=== PATIENT | female | born 2000 | race Caucasian/White ===

== ENCOUNTER → 2019-09-15 12:40 | Outpatient (BNVA) | payer SELFPAY | PROVIDERS: Family Provider General Practice; Visit Provider Nurse Practitioner Women's Health | DX: Z01.89 Encounter for other specified special examinations (principal) ==

== ENCOUNTER 2019-12-10 00:48 | Emergency (ER) | payer SELFPAY ==
[2019-12-10 01:06] VITALS: BP 117/88; PULSE 119; RESP 18; TEMP 36.8; O2SAT 96; BMI 27.1
[2019-12-10 01:47] LABS: Basophils % 0.2 %; Eosinophils % 0.3 %; Hemoglobin 13.2 g/dL (11.5-15.3); Lymphocytes # 2.2 10^3/uL (0.8-4.8); Lymphocytes % 25.5 %; Mean Corpuscular HGB Conc 33.8 g/dL (30.0-36.0); Mean Corpuscular Hemoglobin 31.1 pg (28.0-34.0); Mean Platelet Volume 10.7 fL (7.4-10.4); Monocytes # 0.6 10^3/uL (0.2-0.9); Monocytes % 7.2 %; Neutrophils # 5.9 10^3/uL (1.8-7.7); Neutrophils % 66.5 %; Nucleated Red Blood Cells % 0 %; Platelet Count 192 10^3/cmm (130-400); Red Blood Count 4.24 10^6/uL (4.1-5.3); Red Cell Distribution Width 12.7 % (12.1-15.1); White Blood Count 8.8 10^3/uL (4.0-10.0)
[2019-12-10 02:02] LABS: Alanine Aminotransferase 11 U/L (0-33); Albumin Level 4.3 g/dL (3.5-5.2); Alkaline Phosphatase 59 IU/L (35-105); Anion Gap 14.9 (5-19); Aspartate Amino Transferase 13 U/L (0-32); Blood Urea Nitrogen 6 mg/dL (6-20); Calcium 9.4 mg/dL (8.5-10.5); Carbon Dioxide 25 mmol/L (22-29); Chloride 103 mmol/L (98-107); Globulin 2.9 g/dL (1.3-4.6); Glomerular Filtration Rate 126.2 mL/min (90-130); Glucose 103 mg/dL (65-115); Lipase 17 U/L (13-60); Osmolality Calculated 284 mOsm/kg (285-295); Potassium 3.9 mmol/L (3.5-5.1); Sodium 139 mmol/L (136-145); Total Bilirubin 0.3 mg/dL (0.15-1.2); Total Protein 7.2 g/dL (6.6-8.7)
[2019-12-10 02:14] LABS: HCG Qualitative Urine. Negative (Negative)
[2019-12-10 02:22] LABS: Bilirubin Urine Neg (NEGATIVE); Blood Urine 3+ (Negative); Glucose Urine UA Norm (Normal); Ketones Urine Negative (Negative); Leukocyte Esterase Urine 2+ (Negative); Nitrate Urine Negative (Negative); Protein Urine 2+ (Negative); Specific Gravity, Urine 1.005 (1.005-1.030); Sulfosalicylic Acid Urine Positive (Negative); Urine Appearance Cloudy (CLEAR); Urine Color Straw (Yellow); Urobilinogen Urine Norm (Negative); pH Urine 8 (5-7)
[2019-12-10 02:23] LABS: RBC Urine TOO NUMEROUS TO CNT /hpf (0-2); WBC Urine TOO NUMEROUS TO CNT /hpf (0-5)
[2019-12-10 02:27] LABS: Add Urine Culture? Yes; Bacteria Urine 2+; Transitional Epi Cells Urine 0-4 /hpf
--- NOTE | 2019-12-10 02:38 | W.ED.BACK ---
HPI - Back Pain/Injury General: Chief Complaint: Back Pain/Injury Stated Complaint: lower back pain Time Seen by Provider: 12/10/19 02:06 History of Present Illness: HPI Narrative: Patient is a 19-year-old female comes to the ED with lower back pain. Pain started just prior to arrival. She denies any injury or trauma to cause pain. She rates the pain currently a 7 out of 10 and is on both sides of her lower back. Denies any bladder or bowel incontinence, pain radiating down the legs, numbness or tingling to extremities, saddle anesthesia. Denies dysuria, hematuria. Associated symptoms: Reports chills; Deny abdominal pain, dysuria, fatigue, fever(s), hematuria, nausea or vomiting Review of Systems Const: Reports: chills; Denies: fever or fatigue Eyes: Denies: change in vision or eye discomfort ENMT: Denies: throat pain, painful swallowing, nasal discharge or nasal congestion Card: Denies: chest pain, palpitations, edema, swelling of feet/ankles, shortness of breath on exertion or shortness of breath when lying down Resp: Denies: shortness of breath, productive cough or non-productive cough GI: Denies: abdominal pain, nausea, vomiting, diarrhea, constipation or blood in stool : Denies: flank pain, painful urination or blood in urine Musc: Reports: back pain; Denies: neck pain or extremity swelling Skin/Breast: Denies: rash or new lesion Neuro: Denies: headache, numbness in extremities or weakness in extremities PFS ED PFSH: Medical History Patient denies medical problems Surgical History No pertinent past surgical history Family History Grandmother Cancer Breast cancer-Maternal grandmother Denies family history of Diabetes Hyperlipidemia Hypertension Stroke Social History Smoking and tobacco status: never smoked Alcohol intake: former Former alcohol use details: Social Female Reproductive History: Date of last menstrual period: 11/30/19 Physical Exam Const: COMMON NORMALS: no apparent distress and oriented x3 GENERAL APPEARANCE: cooperative, comfortable and well kempt; not in distress HENMT: COMMON NORMALS: normocephalic HEAD & SCALP: normocephalic MOUTH: oral and palatal mucosa normal THROAT: posterior oropharynx normal and uvula midline Neck/C-Spine: COMMON NORMALS: supple GENERAL: Yes normal visual inspection Resp: COMMON NORMALS: normal respiratory effort, no retractions, no use of accessory muscles and clear to auscultation bilaterally EFFORT & INSPECTION: Yes able to speak in complete sentences and No respiratory distress AUSCULTATION: clear to auscultation bilaterally Cardio: COMMON NORMALS: regular rhythm, S1 normal heart sound, S2 normal heart sound, no gallops, no clicks, no murmurs and peripheral pulses 2+ throughout RATE: tachycardic RHYTHM: regular rhythm HEART SOUNDS: S1 normal and S2 normal PERIPHERAL PULSES: pulses 2+ throughout GI: COMMON NORMALS: normal to inspection, nondistended, normoactive bowel sounds, soft to palpation, non-tender and no masses PALPATION: Yes soft : COMMON NORMALS: Yes no CVA tenderness BLADDER/KIDNEY EXAM: Yes no CVA tenderness Back/Pelvis: COMMON NORMALS: no CVA tenderness LUMBAR SPINE/LOWER BACK: No lumbar spinal tenderness and Yes paraspinal muscle tenderness Lumbar paraspinal muscle tenderness: bilateral Extremity: COMMON NORMALS: normal to inspection Neuro: COMMON NORMALS: oriented x3 and moves all extremities Psych: APPEARANCE: Yes well kempt Skin: COMMON NORMALS: no rashes or lesions noted GENERAL SKIN EXAM: no rashes or lesions noted and dry skin Course Vital Signs: Vital signs: Vital Signs Temperature 98.3 F 12/10/19 01:06 Pulse Rate 68 12/10/19 03:25 Respiratory Rate 16 12/10/19 03:25 Blood Pressure 117/88 12/10/19 01:06 Pulse Oximetry 99 12/10/19 03:25 MDM - Back Pain/Injury MDM Narrative: Medical decision making narrative: Patient is a 19-year-old female who comes in the ED with lower back pain. Physical exam showed paraspinal muscle tenderness in the lumbar spine. CBC and CMP were all unremarkable. Urinalysis showed a UTI. While here in the ED patient was given a shot of Toradol and a shot of Norflex to help with back pain. Patient was discharged with a strain of the lumbar region and a UTI. Patient was given a prescription for Bactrim to treat the UTI and a prescription for Robaxin to help with back pain. Instructed patient to take qgel-yiw-[id number] ibuprofen 600 mg 3 times a day to help with pain and inflammation of the back. I also instructed her to apply ice or heat to back. Patient will to follow-up with PCP in 7 days reevaluation. Patient understood and agreed with plan. Lab Data: Attestation: I reviewed the patient's lab results. Labs: Lab Results 12/10/19 12/10/19 12/10/19 Range/Units 01:40 01:40 02:06 WBC 8.8 (4.0-10.0) 10^3/ uL RBC 4.24 (4.1-5.3) 10^6/u L Hgb 13.2 (11.5-15.3) g/dL Hct 39.0 (37.0-47.0) % MCV 92.0 (81-99) fL MCH 31.1 (28.0-34.0) pg MCHC 33.8 (30.0-36.0) g/dL RDW 12.7 (12.1-15.1) % Plt Count 192 (130-400) 10^3/c mm MPV 10.7 H (7.4-10.4) fL Neut % (Auto) 66.5 % Lymph % (Auto) 25.5 % [place] % (Auto) 7.2 % Eos % (Auto) 0.3 % Baso % (Auto) 0.2 % Neut # (Auto) 5.9 (1.8-7.7) 10^3/u L Lymph # (Auto) 2.2 (0.8-4.8) 10^3/u L [place] # (Auto) 0.6 (0.2-0.9) 10^3/u L Eos # (Auto) 0.0 (0.0-0.8) 10^3/u L Baso # (Auto) 0.0 (0.0-0.1) 10^3/u L Nucleated RBC % (a uto) 0 % Nucleated RBCs # 0.0 /100WBC Sodium 139 (136-145) mmol/L Potassium 3.9 (3.5-5.1) mmol/L Chloride 103 (98-107) mmol/L Carbon Dioxide 25 (22-29) mmol/L Anion Gap 14.9 (5-19) BUN 6 (6-20) mg/dL Creatinine 0.6 (0.5-0.9) mg/dL GFR Calculation 126.2 (90-130) mL/min Glucose 103 (65-115) mg/dL Calculated Osmolal ity 284 L (285-295) mOsm/k g Calcium 9.4 (8.5-10.5) mg/dL Total Bilirubin 0.3 (0.15-1.2) mg/dL AST 13 (0-32) U/L ALT 11 (0-33) U/L Alkaline Phosphata se 59 (35-105) IU/L Total Protein 7.2 (6.6-8.7) g/dL Albumin 4.3 (3.5-5.2) g/dL Globulin 2.9 (1.3-4.6) g/dL Lipase 17 (13-60) U/L HCG, Qual Negative (Negative) Urine Color (Yellow) Urine Appearance (CLEAR) Urine pH (5-7) Ur Specific Gravit y (1.005-1.030) Urine Protein (Negative) Urine Glucose (UA) (Normal) Urine Ketones (Negative) Urine Blood (Negative) Urine Nitrate (Negative) Urine Bilirubin (NEGATIVE) Prot Sulfosalicyli c Acd (Negative) Urine Urobilinogen (Negative) mg/dL Ur Leukocyte Lydia ase (Negative) Urine RBC (0-2) /hpf Urine WBC (0-5) /hpf Ur Squamous Epith Cells (0-5) Ur Transition Epit h Cell /hpf Urine Bacteria (NONE) 12/10/19 Range/Units 02:06 WBC (4.0-10.0) 10^3/ uL RBC (4.1-5.3) 10^6/u L Hgb (11.5-15.3) g/dL Hct (37.0-47.0) % MCV (81-99) fL MCH (28.0-34.0) pg MCHC (30.0-36.0) g/dL RDW (12.1-15.1) % Plt Count (130-400) 10^3/c mm MPV (7.4-10.4) fL Neut % (Auto) % Lymph % (Auto) % [place] % (Auto) % Eos % (Auto) % Baso % (Auto) % Neut # (Auto) (1.8-7.7) 10^3/u L Lymph # (Auto) (0.8-4.8) 10^3/u L [place] # (Auto) (0.2-0.9) 10^3/u L Eos # (Auto) (0.0-0.8) 10^3/u L Baso # (Auto) (0.0-0.1) 10^3/u L Nucleated RBC % (a uto) % Nucleated RBCs # /100WBC Sodium (136-145) mmol/L Potassium (3.5-5.1) mmol/L Chloride (98-107) mmol/L Carbon Dioxide (22-29) mmol/L Anion Gap (5-19) BUN (6-20) mg/dL Creatinine (0.5-0.9) mg/dL GFR Calculation (90-130) mL/min Glucose (65-115) mg/dL Calculated Osmolal ity (285-295) mOsm/k g Calcium (8.5-10.5) mg/dL Total Bilirubin (0.15-1.2) mg/dL AST (0-32) U/L ALT (0-33) U/L Alkaline Phosphata se (35-105) IU/L Total Protein (6.6-8.7) g/dL Albumin (3.5-5.2) g/dL Globulin (1.3-4.6) g/dL Lipase (13-60) U/L HCG, Qual (Negative) Urine Color Straw (Yellow) Urine Appearance Cloudy (CLEAR) Urine pH 8 H (5-7) Ur Specific Gravit y 1.005 (1.005-1.030) Urine Protein 2+ H (Negative) Urine Glucose (UA) Norm (Normal) Urine Ketones Negative (Negative) Urine Blood 3+ H (Negative) Urine Nitrate Negative (Negative) Urine Bilirubin Neg (NEGATIVE) Prot Sulfosalicyli c Acd Positive (Negative) Urine Urobilinogen Norm (Negative) mg/dL Ur Leukocyte Lydia ase 2+ H (Negative) Urine RBC Too numerous to c nt H (0-2) /hpf Urine WBC Too numerous to c nt H (0-5) /hpf Ur Squamous Epith Cells 5-10 H (0-5) Ur Transition Epit h Cell 0-4 /hpf Urine Bacteria 2+ H (NONE) Discharge Plan Discharge Patient Disposition: Home, Self-Care Clinical Impression: Strain of lumbar region Qualifiers: Encounter type: initial encounter Qualified Code(s): S39.012A - Strain of muscle, fascia and tendon of lower back, initial encounter UTI (urinary tract infection) Qualifiers: Urinary tract infection type: acute cystitis Hematuria presence: with hematuria Qualified Code(s): N30.01 - Acute cystitis with hematuria Condition: Stable Prescriptions: New Robaxin-750 750 mg tablet 750 mg PO Q8H Qty: 20 RF: 0 Bactrim DS 800-160 mg tablet 1 tab PO BID 7 Days Qty: 14 RF: 0 No Action Mirena 20 mcg/24 hours (5 yrs) 52 mg intrauterine device 1 device INTRAUTERI ONCE RF: 0 Discharge Orders: Discharge Order (Routine); Ordered 12/10/19 Ordered By: Blake Leon Referrals: Blake Bobo MD [Family Provider] - Discharge Diet: Regular Discharge Activity: Increase activity as tolerated Patient Instructions: Urinary Tract Infection in Women (ED), Acute Low Back Pain (ED) Activity Restrictions/Additional Instructions: Follow-up with your PCP in 7 days for reevaluation. Take full course of antibiotics as prescribed for UTI. For lower back pain take plcx-cyr-yskiypl ibuprofen 600 mg every 8 hours (3 doses a day max) intake prescribed Robaxin(muscle relaxer) at night before bed to help with pain. Apply ice and/or heat on back to help symptoms as well. Drink plenty of fluids and stay hydrated. If symptoms worsen and you start to develop a fever after 3 days of being on antibiotic, return to ED for reevaluation. Discharge Date/Time: 12/10/19 03:26 Coding Level of Care Code ED Rail Washer for Marialuisa Fwd Exam Comprehensive
[2019-12-10] MEDS: sulfamethoxazole-trimeth DS 160-800 mg Tablet 1 TAB PO (03:03)
[2019-12-10] MEDS: ketorolac 30 mg/mL INJ IM (03:03)
[2019-12-10] MEDS: orphenadrine 30 mg/mL Inj 2 mL 60 MG IM (03:04)
[2019-12-10 03:25] VITALS: PULSE 68; RESP 16; O2SAT 99
== END 2019-12-10 03:26 | disposition home or self-care (01) ==
PROVIDERS: Emergency Medicine; Emergency Provider Physician Assistant; Family Provider General Practice
DX: S39.012A Strain of muscle, fascia and tendon of lower back, initial encounter (principal); N30.01 Acute cystitis with hematuria; X58.XXXA Exposure to other specified factors, initial encounter
CPT/HCPCS: 12345; 80053; 81001; 81025; 83690; 85025; 87077; 87086; 87186; 96372; 99281; 99283; A9270; J1885; J2360

== ENCOUNTER → 2021-01-28 14:25 | Outpatient (BNVA) | payer OTHER, SELFPAY | PROVIDERS: Family Provider General Practice; Visit Provider Obstetrics & Gynecology | DX: O09.899 Supervision of other high risk pregnancies, unspecified trimester (principal); Z28.3 Underimmunization status | CPT/HCPCS: 80307; 84315; 85027; 86592; 86762; 86803; 86850; 86900; 87086; 87340; 87491; 87591; 87806; 88175 ==

== ENCOUNTER → 2021-02-27 10:19 | Outpatient (BNVA) | payer OTHER, SELFPAY | PROVIDERS: Family Provider General Practice; Visit Provider Nurse Practitioner Women's Health | DX: O30.002 Twin pregnancy, unspecified number of placenta and unspecified number of amniotic sacs, second trimester (principal); O09.899 Supervision of other high risk pregnancies, unspecified trimester; Z3A.00 Weeks of gestation of pregnancy not specified | CPT/HCPCS: 84315; 85027 ==

== ENCOUNTER → 2021-04-03 13:53 | Outpatient (BNVA) | payer MEDICAID, SELFPAY | PROVIDERS: Family Provider General Practice; Visit Provider Obstetrics & Gynecology | DX: O30.002 Twin pregnancy, unspecified number of placenta and unspecified number of amniotic sacs, second trimester (principal); Z3A.20 20 weeks gestation of pregnancy; O32.1XX0 Maternal care for breech presentation, not applicable or unspecified | CPT/HCPCS: 76805; 76810 ==

== ENCOUNTER → 2021-04-30 11:43 | Outpatient (BNVA) | payer MEDICAID, SELFPAY | PROVIDERS: Family Provider General Practice; Visit Provider Nurse Practitioner Women's Health | DX: O09.899 Supervision of other high risk pregnancies, unspecified trimester (principal); O30.032 Twin pregnancy, monochorionic/diamniotic, second trimester; N76.0 Acute vaginitis; B96.89 Other specified bacterial agents as the cause of diseases classified elsewhere | CPT/HCPCS: 82950; 84315; 86787 ==

== ENCOUNTER → 2021-05-07 08:23 | Outpatient (BNVA) | payer MEDICAID, SELFPAY | PROVIDERS: Family Provider General Practice; Visit Provider Nurse Practitioner Women's Health | DX: O99.810 Abnormal glucose complicating pregnancy (principal); Z3A.00 Weeks of gestation of pregnancy not specified | CPT/HCPCS: 82951; 82952 ==

== ENCOUNTER → 2021-05-30 10:34 | Outpatient (BNVA) | payer MEDICAID, SELFPAY | PROVIDERS: Family Provider General Practice; Visit Provider Obstetrics & Gynecology | DX: O09.899 Supervision of other high risk pregnancies, unspecified trimester (principal); Z3A.00 Weeks of gestation of pregnancy not specified | CPT/HCPCS: 84315; 85025; 86850 ==

== ENCOUNTER → 2021-07-11 08:53 | Outpatient (BNVA) | payer BC, MEDICAID, SELFPAY | PROVIDERS: Family Provider General Practice; Visit Provider Obstetrics & Gynecology | DX: O30.032 Twin pregnancy, monochorionic/diamniotic, second trimester | CPT/HCPCS: 81000 ==

== ENCOUNTER 2021-07-18 03:13 | Inpatient (IN) | payer BC, MEDICAID, SELFPAY ==
[2021-07-17] VITALS (32 sets, daily range): BP systolic 96–126; BP diastolic 58–80; PULSE 85–115; RESP 16; O2SAT 90–100
--- NOTE | 2021-07-17 21:14 | USR_ITS ---
PROCEDURE INFORMATION: Exam: US , Limited Exam date and time: 07/17/2021 9:14 PM Age: 21 years old Clinical indication: complicated by abdominal or pelvic pain; Lower; Third trimester (=28 weeks 0 days); Gestational age or lmp: 35 w 1 day; ; Additional info: Presentation twins TECHNIQUE: Imaging protocol: Real-time ultrasound of the maternal uterus with image documentation. Exam focused on the clinical indication. COMPARISON: US OB BPP w [facility] 07/11/2021 9:03 AM FINDINGS: Gestation: Live twin intrauterine gestation. Fetus A with heart rate measuring 160 bpm. Fetus B with heart rate of 176 bpm. US/US OB limited twins [id number] IMPRESSION: Live twin intrauterine gestation. Radiation Dose CTDIVOL = (mGy): DLP = (mGy-cm)
[2021-07-17 21:32] LABS: Basophils % 0.2 %; Eosinophils % 0.2 %; Hematocrit 34.3 % (37.0-47.0); Hemoglobin 11.6 g/dL (11.5-15.3); Lymphocytes % 23.4 %; Mean Corpuscular HGB Conc 33.8 g/dL (30.0-36.0); Mean Corpuscular Hemoglobin 30.4 pg (28.0-34.0); Mean Platelet Volume 12.2 fL (7.4-10.4); Monocytes # 0.6 10^3/uL (0.2-0.9); Monocytes % 7.1 %; Neutrophils # 5.94 10^3/uL (1.8-7.7); Neutrophils % 68.4 %; Nucleated Red Blood Cells % 0 %; Platelet Count 108 10^3/cmm (130-400); Red Blood Count 3.81 10^6/uL (4.1-5.3); Red Cell Distribution Width 13.2 % (12.1-15.1); White Blood Count 8.7 10^3/uL (4.0-10.0)
[2021-07-17] MEDS: lactated ringers 1,000 ML 999 ML IV (21:41)
[2021-07-17] MEDS: ampicillin 2,000 MG in sodium chloride 0.9% (plus) 50 ML 100 MG IV (21:44)
[2021-07-17] MEDS: dextrose 5%-lactated ringers 1,000 ML 125 ML IV (22:50)
--- NOTE | 2021-07-17 23:05 | ANES.PREANE2 ---
Pre-Anesthetic Assessment Pre-Anesthetic Assessment: Height/Weight: Height 5 ft 3 in Weight 80.286 kg Pulse Resp BP Pulse Ox 102 H 16 96/80 99 07/17/21 23:23 07/17/21 21:14 07/17/21 23:23 07/17/21 23:20 Preop Diagnosis: IUP Proposed Procedure: labor epidural Was Beta Kelley taken within 24 hours: N/A Was Clonidine taken within 24 hours: N/A Social: Social History: No alcohol and No tobacco Exam: Pre-Anes Outpt Exam: alert, oriented x 3, clear to auscultation bilaterally and regular rate & rhythm Airway: Submandibular: WNL Cervical ROM: WNL MP: 1 History/ROS: No significant history except as noted Pulmonary: Pulmonary: None reported CV/HEM: CV/HEM: None reported : : None reported Hepatic: Hepatic: None reported GI: GI: None reported Metabolic: Metabolic: None reported Musc/skel: Musc/skel: None reported Neuropsych: Neuropsych: None reported Anesthetic Plan: ASA status: 1 Anesthesia: Anesthesia Evaluation Risk of > 500 ml blood loss (7ml/kg in children): No Meds/Allergies Current Medications: Current Medications Generic Name Dose Route Start Last Admin Trade Name Freq PRN Reason Stop Dose Admin Lactated Ringer's 1,000 mls @ 999 m ls/hr 07/17/21 21:14 07/17/21 23:20 Lactated Ringers IV Infused .Q1H1M PRN Infusion See label comment s Dextrose/Lactated Ringer's 1,000 mls @ 125 m ls/hr 07/17/21 21:15 07/17/21 22:50 Dextrose 5%-Lact ated Ringers IV 125 mls/hr .Q8H KRISTINE Administration PFSH Anesthesia PFSH: Medical History No pertinent past medical history neghx: htn,dm,thyroid,dvt/pe PCP: Surgical History No pertinent past surgical history Family History Grandmother Breast cancer Maternal Grandfather Cancer PGF-- multiple myeloma Denies family history of Cervical cancer Ovarian cancer Diabetes Heart disease Hypercholesteremia Hyperlipidemia Hypertension Uterine cancer Thyroid disease Stroke Female Reproductive History: : 2 Data Anesthesia CBC & Chem 7: 07/17/21 21:20 Other Labs: Laboratory Results - last 48 hr 07/17/21 21:20 WBC 8.7 RBC 3.81 L Hgb 11.6 Hct 34.3 L MCV 90.0 MCH 30.4 MCHC 33.8 RDW 13.2 Plt Count 108 L MPV 12.2 H Neut % (Auto) 68.4 Lymph % (Auto) 23.4 [place] % (Auto) 7.1 Eos % (Auto) 0.2 Baso % (Auto) 0.2 Neut # (Auto) 5.94 Lymph # (Auto) 2.0 [place] # (Auto) 0.6 Eos # (Auto) 0.0 Baso # (Auto) 0.0 Nucleated RBC % (auto) 0 Nucleated RBCs # 0.0 Cardiac Studies: No Data to Display
--- NOTE | 2021-07-17 23:29 | ANES.PROC ---
Anesthesia Procedures Procedure/Date: 07/17/21 Epidural: Time Out Performed: Yes Consents Signed: Procedure Consent Consent: requested by attending/covering physician Lumbar Level: L4-L5 Epidural position: sitting Epidural procedure: sterile prep of area, 1% lidocaine to numb the area, negative for paresthesia passed, neg for paresthesia, test dose given, 1.5% xylocaine 1:200k epi (4ml), placed PCEA, no systemic response, sterile dressing applied, L.U.D. no apparent complications and 0.2% Ropiavacaine @ mls/hr (13)
[2021-07-18] VITALS (107 sets, daily range): BP systolic 77–133; BP diastolic 44–91; PULSE 51–155; O2SAT 97–100
[2021-07-18] MEDS: ampicillin 1,000 MG in sodium chloride 0.9% (plus) 50 ML 100 MG IV ×3 (01:49→09:15)
[2021-07-18] MEDS: oxytocin 30 UNIT/500 ML BAG IV (05:22)
[2021-07-18] MEDS: betamethasone susp 6 mg/mL 5 mL 12 MG IM (06:04)
[2021-07-18] MEDS: dextrose 5%-lactated ringers 1,000 ML 125 ML IV (07:29)
--- NOTE | 2021-07-18 08:56 | PM.OPHPUD ---
Labor & Delivery H&P Update Date of Procedure: July 18, 2021 Date H&P Performed: 07/11/21 H&P update information: I have reviewed H&P completed within last 30 days and Changes to prior documentation as noted here (cervix 6cm dilation, Effacement 75%, -3 station, presentation cephalic/cephalic) Changes to previous documentation: 20 year old G2 P 1,0,0,1 patient with TWIN and LMP of 11/13/2020, SALOME of 08/20/2021 based on LMP and consistent with 10 week sonogram, placing her at 35 2/7 week gestation in active labor Admission Diagnosis: Preop diagnosis: IUP
--- NOTE | 2021-07-18 08:58 | PM.PN ---
Subjective Subjective: Interval history: 20 year old G2 P 1,0,0,1 patient with TWIN and LMP of 11/13/2020, SALOME of 08/20/2021 based on LMP and consistent with 10 week sonogram, placing her at 35 2/7 week gestation. Vitals/I&O/Wt Last Vital Signs Pulse 78 07/18/21 08:51 Resp 16 07/17/21 21:14 BP 110/69 07/18/21 08:51 Pulse Ox 98 07/18/21 01:15 07/17/21 07/18/21 07/18/21 22:59 06:59 14:59 Intake Total 50 / 50 2203.0 / 2253.0 Output Total 450 / 450 Balance 50 / 50 1753.0 / 1803.0 Weight last 48 hrs Weight 80.286 kg Physical Exam Narrative: EXAM NARRATIVE: GA: Alert and oriented ?3. Lungs: Clear to auscultation bilaterally. Heart: Regular rhythm and rate. Abdomen: Gravid, full the height equals dates, nontender. STATE ASSESSED PROPERTIES DIRECTOR: SVE; dilation: 8 cm, effacement: 80%, station: -3, presentation: Cephalic/cephalic, membranes: Intact. Extremities: no edema, no cyanosis, no calves pain. heart tracing: Basal rate: Baby A:140's bpm, Baby B: 140's bpm, Variability: moderate, Accelerations: present, Decelerations: absent, Contraction: q4min. Urinary Catheter Management^: Mtz: Cath Placed During This Visit: yes Reason for Continuing Indwelling Catheter: Required Immobilization for Trauma or Surgery or Anesthesia Urinary Catheter Date of Insertion: 07/17/21 Urinary Catheter Time of Insertion: 23:50 Data : 07/17/21 21:20 A&P Assessment and plan (1) Monochorionic diamniotic twin : 20 year old G2 P 1,0,0,1 patient with TWIN monochorionic/diamniotic and LMP of 11/13/2020, SALOME of 08/20/2021 based on LMP and consistent with 10 week sonogram, placing her at 34 2/7 week gestation. Came to labor and delivery with a 6 cm dilation in active labor. Twins were confirmed by ultrasound cephalic presentation for both. heart tracing category 1 for both. GBS prophylaxis started, and corticosteroid for lung maturation given. Plan and anticipate vaginal delivery. Double set up was already in place. Peds and anesthesia have been notified. Status: Acute Qualifiers: Trimester: second trimester Qualified Code(s): O30.032 - Twin , monochorionic/diamniotic, second trimester Attestations Medical Necessity Statement*: In my professional opinion per admitting diagnosis Coding Level of Care Code Acute Equipment Or Machinery Cleaner for Chg Fwd Diagnoses Monochorionic diamniotic twin O30.032 Trimester: second trimester
--- NOTE | 2021-07-18 09:50 | P.ANES_ITS ---
Anesthesia Procedures Procedure/Date: 07/18/21 Procedure Narrative: Called to LDR1 where pt c/o pain. Pt with epi catheter noted to be pulled out from connector. Pt decided to have epi replaced. Pt placed sitting position with epi d/c with tip intact Epidural: Time Out Performed: Yes Consents Signed: Procedure Consent Consent: from patient and patient agrees to proceed Lumbar Level: L3-L4 Epidural position: sitting Epidural procedure: sterile prep of area (betadine), 1% lidocaine to numb the area (3ml), 18 g needle, neg for paresthesia, test dose given, 1.5% xylocaine 1:200k epi (3ml), 0.2% Ropivacaine bolus ml (5ml), placed PCEA, no systemic response, sterile dressing applied, L. U.D. no apparent complications and 0.2% Ropiavacaine @ mls/hr (13ml/hr)
[2021-07-18] MEDS: ondansetron 2 mg/ML SDV 2 mL 4 MG IVP (12:02)
--- NOTE | 2021-07-18 12:39 | PM.PN ---
Subjective Subjective: Interval history: 20 year old G2 P 1,0,0,1 patient with TWIN monochorionic/diamniotic at 35+2 weeks. Comfortable, using peanut ball. Vitals/I&O/Wt Last Vital Signs Pulse 96 07/18/21 12:33 Resp 16 07/17/21 21:14 BP 89/57 07/18/21 12:33 Pulse Ox 100 07/18/21 12:02 07/17/21 07/18/21 07/18/21 22:59 06:59 14:59 Intake Total 50 / 50 2203.0 / 2253.0 51.867 / 51.867 Output Total 450 / 450 Balance 50 / 50 1753.0 / 1803.0 51.867 / 51.867 Weight last 48 hrs Weight 80.286 kg Physical Exam Narrative: EXAM NARRATIVE: GA: Alert and oriented ?3. Lungs: Clear to auscultation bilaterally. Heart: Regular rhythm and rate. Abdomen: Gravid, full the height equals dates, nontender. BESSEMER BOTTOM MAKER: SVE; dilation: 8-9 cm, effacement: 90%, station: -1, presentation: VX/VX, membranes: AROM clear. Extremities: no edema, no cyanosis, no calves pain. heart tracing: Basal rate: Baby A: 140's, Baby B: 130 bpm, Variability: moderate, Accelerations: present, Decelerations: absent, Contraction: q4min. Urinary Catheter Management^: Mtz: Cath Placed During This Visit: yes Reason for Continuing Indwelling Catheter: Required Immobilization for Trauma or Surgery or Anesthesia Urinary Catheter Date of Insertion: 07/17/21 Urinary Catheter Time of Insertion: 23:50 Data : 07/17/21 21:20 A&P Assessment and plan (1) Monochorionic diamniotic twin : 20 year old G2 P 1,0,0,1 patient with TWIN monochorionic/diamniotic and LMP of 11/13/2020, SALOME of 08/20/2021 based on LMP and consistent with 10 week sonogram, placing her at 35 2/7 week gestation. Twins were confirmed by ultrasound cephalic presentation for both. heart tracing category 1 for both. Nurse had some diffculty keeping baby B on transducer. AROM baby A with clear fluids and internal monitoring with scalp electrodes (FSE) in placed for baby A. Plan and anticipate vaginal delivery. Double set up was already in place. Peds and anesthesia have been notified. Status: Acute Qualifiers: Trimester: second trimester Qualified Code(s): O30.032 - Twin , monochorionic/diamniotic, second trimester Attestations Medical Necessity Statement*: In my professional opinion per admitting diagnosis Coding Level of Care Code Acute Management Professor for Chg Fwd Diagnoses Monochorionic diamniotic twin O30.032 Trimester: second trimester
--- NOTE | 2021-07-18 13:46 | P.PCNOB_ITS ---
Delivery Note: Date of delivery: July 18, 2021 Pre-delivery diagnoses: Monochorionic diamniotic twin Post-delivery diagnoses: twin delivered Procedure: Spontaneous vaginal delivery Op report anesthesia: Epidural Estimated blood loss (mL): 300 Delivery: The patient was noted to be complete and pushing, she was trasfered to the OR and she was placed in the dorsal lithotomy position, prepped and draped in the usual sterile fashion for a vaginal delivery. Pt. Noted to have epidural anesthesia. At [] the patient delivered Baby A at 35+2 weeks weighing 2065 g with scores of 8 and 8 at one and five minutes, respectively. The vertex was delivered spontaneously over an intact perineum. The patient was asked to push and the head delivered spontaneously in the [TAMIE] position, over an intact perineum. A nuchal cord was checked and none noted. The anterior shoulder delivered easily and the posterior shoulder followed. The remainder of the was easily delivered and the oropharynx and nasopharynx was bulb suctioned. The infant was noted to have spontaneous cry and spontaneous movement of all four extremities. The cord was clamped x 2 and cut and noted to have 2 arteries and one vein. The was passed to the warmer where Peds and nursing personnel were in attendance. The shortly after she continued to push and Baby B came down in vertex OP presentation. AROM was performed with clear fluids. Then the patient delivered Baby at 35+2 weeks weighing 2495 g with scores of 8 and 8 at one and five minutes, respectively. The vertex was delivered spontaneously over an intact perineum. The patient was asked to push and the head delivered spontaneously in the OP position, over an intact perineum. A nuchal cord was checked and none noted. The anterior shoulder delivered easily and the posterior shoulder followed. The remainder of the was easily delivered and the oropharynx and nasopharynx was bulb suctioned. The infant was noted to have spontaneous cry and spontaneous movement of all four extremities. The cord was clamped x 2 and cut and noted to have 2 arteries and one vein. The infant was passed to the warmer where Peds and nursing personnel were in attendance. The placenta delivered intact spontaneously and the uterus was explored. 20 units of Pitocin was placed in the IV bag to firm the uterus. Examination of the cervix and vaginal vault did not reveal any lacerations. A vaginal pack was then placed. Examination of the perineum showed no lacerations noted. The vaginal pack was then removed. The patient tolerated this procedure well, and recovered in OR with her infants then she was transferred to the unit in stable condition. The infants were transferred to the nursery for observation. All sponge and needle counts were correct. History History History 2 Term 1 Miscarriages/Ectopic 0 0 Living Children 1 A&P Assessment and plan (1) Monochorionic diamniotic twin : Status: Resolved Qualifiers: Trimester: second trimester Qualified Code(s): O30.032 - Twin , monochorionic/diamniotic, second trimester (2) , twin, delivered: Status: Resolved Coding Level of Care Code Acute Experimental Rocketsled Mechanic for Chg Fwd Diagnoses Monochorionic diamniotic twin O30.032 Trimester: second trimester , twin, delivered O30.009
[2021-07-18] MEDS: docusate sodium 100 mg Capsule PO (17:22)
[2021-07-18] MEDS: ibuprofen 800 mg tablet PO ×2 (17:22→21:15)
--- NOTE | 2021-07-18 20:17 | PC.NURSE ---
1310 moved pt via bed to OR for delivery of twins 1311 in OR, Unable to connect FHT A and FHT B to centralized monitoring, printing tracing, FHT A in the 130's, FHT B in the 120's, , Aubrey RN, Deena RN, Marisol Rodarte RN and Cipriano PASCUAL in the OR at this time helping to set up pt to push. 1315 pt set up to push. at bedside, ultrasound in use to locate position of Baby B. Baby B vertex, Deena at the perineum.Aubrey Locating FHT B with external heart tone ultrasound monitor.1329: Deena at perineum Baby A large crown, changing into sterile attire. 1330 delivery of A, 1331 SVE to find baby B presentation, baby b presentation vertex. Baby B at 1333. baby B born 1333.
[2021-07-18] MEDS: HYDROcodone-acetaminophen 5-325 mg Tablet PO (21:48)
[2021-07-19 03:23] LABS: Hematocrit 34.5 % (37.0-47.0); Hemoglobin 11.5 g/dL (11.5-15.3); Mean Corpuscular HGB Conc 33.3 g/dL (30.0-36.0); Mean Corpuscular Hemoglobin 30.3 pg (28.0-34.0); Mean Platelet Volume 13.2 fL (7.4-10.4); Platelet Count 118 10^3/cmm (130-400); Red Blood Count 3.79 10^6/uL (4.1-5.3); Red Cell Distribution Width 13.2 % (12.1-15.1); White Blood Count 15.5 10^3/uL (4.0-10.0)
[2021-07-19] MEDS: HYDROcodone-acetaminophen 5-325 mg Tablet PO (03:27)
[2021-07-19 04:00] VITALS: BP 117/79; PULSE 56; RESP 16
[2021-07-19 07:21] VITALS: BP 123/70; PULSE 57; RESP 18; TEMP 36.8; O2SAT 99
--- NOTE | 2021-07-19 08:17 | ANE.PACU2 ---
Inpatient post-anesthesia follow up: Airway intact: Yes Vital signs: Temperature 98.2 F Pulse Rate 57 Respiratory Rate 18 Blood Pressure 123/70 Pulse Oximetry 99 Oxygen Delivery Me thod Room Air Oxygen Flow Rate Fraction of Inspir ed Oxygen Hydration adequate: Yes Nausea and vomiting: No Pain level: 2 Mental status: Baseline
[2021-07-19] MEDS: docusate sodium 100 mg Capsule PO (09:32)
[2021-07-19] MEDS: prenatal vitamin Capsule 1 CAP PO (09:32)
[2021-07-19] MEDS: ibuprofen 800 mg tablet PO ×3 (09:32→21:27)
[2021-07-19 09:41] VITALS: BP 120/82; PULSE 55; RESP 16; TEMP 36.9; O2SAT 99
[2021-07-19 15:57] VITALS: BP 97/64; PULSE 67; RESP 14; TEMP 36.8
--- NOTE | 2021-07-19 16:46 | PM.OBGYDC ---
Discharge Providers PARIMUTUEL CASHIER Date of Admission: 07/18/21 03:13 Date of Discharge: 07/19/21 Attending Provider at Admission: Abram Ramirez MD Attending Provider at Discharge: Abram Ramirez MD Primary Care Provider: Blake Bobo MD Diagnoses at Discharge Discharge Diagnosis (1) Monochorionic diamniotic twin : Status: Acute Qualifiers: Trimester: second trimester Qualified Code(s): O30.032 - Twin , monochorionic/diamniotic, second trimester (2) , twin, delivered: Status: Acute Permanent problem details: Status post spontaneous vaginal delivery day 1, afebrile and hemodynamically stable. Reason for Visit Reason for Visit: contractions Hospital Course Hospital Course Mrs. Canales 21-year-old female with an estimated gestational age of 35 weeks 1 day with twin monochorionic/diamniotic came to labor and delivery complaining of contractions upon examination she was found to be an active labor with a 6 cm dilation. Ultrasound was ordered to confirm twins presentation cephalic/ cephalic. She progressed to have a spontaneous vaginal delivery of 2 infant girls without complications. Overnight observation uneventful. Tolerating diet well. Ambulating without difficulty. Physical Exam Narrative: EXAM NARRATIVE: GA; alert and oriented x 3 HEENT: normal Breasts: engorged Nipples - skin intact Lungs; clear to auscultation Heart: regular rhythm, no murmurs. Abd: Appropriately tender. BS+. Uterine fundus below umbilicus. No Fundal Tenderness. Perineum: normal lochia. Extremities: no edema, no cyanosis, no tenderness. Urinary Catheter Management^: Mtz: Cath Placed During This Visit: yes, but has since been removed by the nurse Reason for Continuing Indwelling Catheter: Required Immobilization for Trauma or Surgery or Anesthesia Urinary Catheter Date of Insertion: 07/17/21 Urinary Catheter Time of Insertion: 23:50 Date Urinary Catheter Removed: 07/18/21 Time Urinary Catheter Discontinued: 12:00 History History History 2 Term 1 Miscarriages/Ectopic 0 0 Living Children 1 Discharge Data Data Completed and Pending: Completed Studies During Hospitalization Category [place] [id number] Stat Ultrasound 07/17/21 21:14 Completed Pending at discharge Category Date Time Status Complete Crossmat ch Routine Lab 07/17/21 21:20 Results Maternal He morrhage Scrn Rout ine Lab 07/18/21 06:00 Ordered Rho D Immune Glob ulin Routine Lab 07/17/21 21:20 Results Type and Screen R outine Lab 07/17/21 21:20 Results Labs from last 24 hours 07/19/21 07/17/21 02:45 21:20 WBC 15.5 H RBC 3.79 L Hgb 11.5 Hct 34.5 L MCV 91.0 MCH 30.3 MCHC 33.3 RDW 13.2 Plt Count 118 L MPV 13.2 H Blood Type A Negative Rho(D) Type Negative Antibody Screen Negative Vitals: Last Vital Signs Temp 98.2 F 07/19/21 15:57 Pulse 67 07/19/21 15:57 Resp 14 07/19/21 15:57 BP 97/64 07/19/21 15:57 Pulse Ox 99 07/19/21 09:41 Discharge Plan Discharge Patient Disposition: Home Condition: Stable Prescriptions: New ibuprofen 800 mg tablet 800 mg PO TID PRN (Reason: pain) Qty: 60 RF: 0 Colace 100 mg capsule 100 mg PO BID Qty: 60 RF: 0 acetaminophen 325 mg capsule 325 mg PO Q4H PRN (Reason: fever or pain) Qty: 60 RF: 0 Continued ferrous sulfate 325 mg (65 mg iron) tablet 325 mg PO BID Qty: 60 RF: 6 Gummies 400 mcg-35 mg- 25 mg-5 mg tablet,chewable 3 tab PO DAILY RF: 0 Discharge Orders: Discharge Order (Routine); Ordered 07/19/21 Ordered By: Abram Ramirez Referrals: Abram Ramirez MD [Physician] - 6 Weeks Discharge Diet: Usual diet Discharge Activity: Increase activity as tolerated Patient Instructions: Caring for Your Baby (GEN), Vaginal Delivery (GEN), Your 's Appearance (GEN), Opioid Safety Activity Restrictions/Additional Instructions: 1. Please call [facility] on next working day to make your appointment in 6 weeks. 2. Please stay home until you come back to the clinic on first post-operative check up. 3. Please follow instructions on your medications CAREFULLY. 4. If you have abdominal incision, do not cover it unless dressing is necessary because of drainage. OK to shower, but avoid bath. Leave steri-strips until they fall off. If they are still on one week after surgery, you may remove them. 5. If you had vaginal surgery or vaginal repair, Dr. Ramirez may instruct you to take SITZ bath. 6. Yellow, blood tinged odorous vaginal discharge is usually normal after hysterectomy or vaginal surgeries. 7. No sexual intercourse, tampons, or douches until you are completely released from the post-operative care. 8. Avoid constipation by eating right and maybe using some Metamucil or Milk of Magnesia. 9. All prescription refills are given during the working hours. Please do no wait till it runs out. Call the clinic at [phone] before your medication runs out. The clinic will get in touch with your doctor to prescribe medications if necessary. 10. Please remain within 40 mile radius from our hospital because emergencies do happen now and then during the post-operative period. 11. If you have stairs at home, take one step at a time slowly and minimize the number of trips. It helps to stay in one floor for the next few days. No lifting except what you can lift by one hand until you are released from the post-operative care. 12. Driving is discouraged until you are well healed. It may be 3-4 weeks before you feel strong enough to drive. You should be able to turn and look through the rear window without pain and you should be able to push the brake pedal very hard without pain before you drive. No fast rules, but SAFETY should be your primary concern. DO NOT drive if you are on sedating medications such as narcotics. 13. Call the clinic (during working hours) to make urgent appointment or go to the Emergency room, if any of the following occurs: i. Vaginal bleeding becomes heavy, more than a period. ii. Incision becomes red and sore, or drains pus. iii. Your temperature is over 100.4 or you have chill. iv. IV site becomes red and swollen (a little ``knot?? is usually OK) v. Persistent nausea and vomiting vi. Persistent constipation or diarrhea vii. Rash or allergic reaction to medications. Discharge Attestations PARIMUTUEL CASHIER Time Spent in Discharge Care*: greater than 30 min Coding Level of Care Code Acute Digital Intern for g Fwd Diagnoses Monochorionic diamniotic twin O30.032 Trimester: second trimester , twin, delivered O30.009
[2021-07-19 22:15] VITALS: BP 115/76; PULSE 60; TEMP 36.5
== END 2021-07-19 22:15 | disposition home or self-care (01) | DRG 807 ==
LOC: OPOB 03:13 → OBGYN 03:13
PROVIDERS: Admitting Provider Obstetrics & Gynecology; PCP General Practice; Visit Provider Obstetrics & Gynecology
DX: O30.033 Twin pregnancy, monochorionic/diamniotic, third trimester (principal); Z37.2 Twins, both liveborn; Z3A.35 35 weeks gestation of pregnancy
CPT/HCPCS: 36415; 51702; 59025; 59409; 76815; 85025; 85027; 85460; 86850; 86900; 90384; 96372; 96374; 99211; J0290; J0702; J2405; J2795

== ENCOUNTER → 2021-09-02 08:19 | Outpatient (BNVA) | payer BC, MEDICAID, SELFPAY | PROVIDERS: PCP General Practice; Visit Provider Obstetrics & Gynecology | DX: Z30.430 Encounter for insertion of intrauterine contraceptive device (principal) | CPT/HCPCS: 81025 ==